=== PATIENT | female | born 1970 | race Caucasian/White ===

== ENCOUNTER → 2019-04-12 09:22 | Outpatient (CLI) | payer OTHER, SELFPAY ==
--- NOTE | ~2019-04-12 | XR_ITS ---
EXAMINATION: XR knee RT 3V DATE: 04/12/2019 09:45 INDICATION: Right knee pain. TECHNIQUE: 3 views of right knee were obtained. COMPARISON: None. FINDINGS: Bone alignment is normal. No fracture. There is mild tricompartment osteoarthritis. There i s a small knee joint effusion. IMPRESSION: 1. Mild right knee osteoarthritis. 2. Small right knee joint effusion. Reviewed, dictated and finalized at location [facility] [employer]
== END ==
PROVIDERS: PCP Internal Medicine; Visit Provider Nurse Practitioner
DX: M25.561 Pain in right knee (principal); M17.11 Unilateral primary osteoarthritis, right knee; M25.461 Effusion, right knee
CPT/HCPCS: 73562

== ENCOUNTER 2019-05-22 14:00 | Outpatient (RCR) | payer OTHER, SELFPAY ==
--- NOTE | 2019-04-17 16:13 | PTOPEVAL ---
PHYSICAL THERAPY EVALUATION AND PLAN OF CARE Thank you for referring this patient to [facility]. Jyoti will be seen in PT 1x/week for 4 weeks. Please review, sign, date and return this plan of care ROMERO. I agree with and certify that the following plan of care is medically necessary. Referring Physician Date Attending Provider: Ally Mg NP Evaluation Diagnosis right knee pain Onset 2months ago Cause insidious Subjective Information Jyoti is here today with c/o Query Text:As Reported By Patient/ right knee pain. Standing, Family walking, and stair climbing increase symptoms; occasional achiness while sitting. Intermittment, but daily and sometimes worse than others. Notes a moment when she was crouching that she noted significant increase in pain in which she had to reposition in order to get back up. Jyoti does walk daily with goal of 10,000steps and will use treadmill if needed; has a weight machine at home for strengthening Self Report Pain Assessment Right Knee(s) Reported Pain Level 3 Pain Frequency Acute,Intermittent Current Pain Intensity 3 Lowest Pain Intensity 0 Greatest Pain Intensity 8 Pain Aggravating Factors Prolonged Position,Stair Climbing,Walking,Weight Bearing/Standing Pain Behaviors None Pain Relief Interventions Used By Medication Patient Interventions Used By Clinicians Exercise Additional Pain Comments osteobiflex Pain Score Pain Score 3: Self Report Hip Strength Right Hip Flexion Strength 4+ Good + Hip Extension Strength 3+ Fair + Hip Abduction Strength 3+ Fair + Knee Strength Right Knee Flexion Strength 5 Normal Knee Extension Strength 4+ Good + Knee Strength Comments single leg sit<>stand: unable at normal chair height on right knee; able to perform with imld difficulty on left Muscle Length Testing Left Hamstring Length -20 Query Text:(90 - 90 Position) Right Hamstring Length -20 Query Text:(90 - 90 Position) Palpation Assessment effusion noted at joint line
--- NOTE | 2019-05-08 07:57 | PCPTNOTE ---
Patient called & cancelled scheduled appointment this date. No reason provided.
--- NOTE | 2019-05-22 14:33 | PTOPEVAL ---
PHYSICAL THERAPY DISCHARGE NOTE Thank you for referring Jyoti Thomas to [facility]. Please review, sign, date and return this plan of care ROMERO. I agree with and certify that the following plan of care is medically necessary. Referring Physician Date Attending Provider: Ally Mg, FRONT ELEVATOR OPERATOR Discharge Diagnosis right knee pain Onset 2months ago Cause insidious Subjective Information Jyoti reports she is walking Query Text:As Reported By Patient/ more as she would normally Family want to. There are occasional days of some discomfort but overall is very manageable and tolerable. Pain Assessment Timing of Pain Assessment Timing of Pain Assessment Assessment Self Report Self Report Pain Level 0 Pain Score Pain Score 0: Self Report Lower Extremity Muscle Strength Testing Hip Strength Right Hip Flexion Strength 5 Normal Hip Extension Strength 4+ Good + Hip Abduction Strength 4+ Good + Knee Strength Right Knee Flexion Strength 5 Normal Knee Extension Strength 5 Normal Knee Strength Comments single leg sit<>stand: mild difficulty to perform, but improved compared to initial visit Palpation no apparent effusion at joint line Gait Pattern No Deviations/Normal Stair Climbing Assessment Stair Climbing Assessment Stair Climbing Assistive Devices None Number of Steps Climbed (Steps) 7 Number of Repetitions (Repetitions) 1 Technique Alternating Steps Stair Climbing Direction Both Up and Down PT Clinical Summary Jyoti demonstrates today that she has met her functional goals at this time. She reports today that subjective symptoms are now manageable. She is comfortable with HEP and purchased therapy resistance bands.
== END 2019-06-20 14:41 | disposition home or self-care (01) ==
LOC: ANHPT 14:00
PROVIDERS: PCP Internal Medicine; Visit Provider Nurse Practitioner
DX: M25.561 Pain in right knee (principal)
CPT/HCPCS: 97110; 97161

== ENCOUNTER → 2020-01-01 09:27 | Outpatient (CLI) | payer OTHER, SELFPAY ==
--- NOTE | ~2020-01-01 | DEXA_ITS ---
Bone Density Report Name: Jyoti Thomas Age: 49 Sex: Female Ethnicity: White Date of : 1970 Indication: postmenopausal; screening for osteoporosis; hysterectomy; Referring Provider: CECE SHABAZZ Study: Bone densitometry was performed. Exam Date: January 01, 2020 Accession number: [id number] Bone Density: Region BMD T-score Z-score Classification AP Spine (L1-L4) 1.033 -0.1 0.6 Normal Femoral Neck (Left) 0.937 0.8 1.6 Normal Total Hip (Left) 1.092 1.2 1.7 Normal Femoral Neck (Right) 0.868 0.2 0.9 Normal Total Hip (Right) 1.021 0.6 1.1 Normal Total Hip Mean 1.057 0.9 1.4 Normal World Health Organization criteria for BMD impression classify patients as: Normal (T-score at or above -1.0), Osteopenia (T-score between -1.0 and -2.5), or Osteoporosis (T-score at or below -2.5). 10-year Fracture Risk: FRAX not reported because: All T-scores for Spine Total, Hip Total, Femoral Neck at or above -1.0 Clinical Information Provided by Patient: Has used the following medications: Vitamin D Has the following medical conditions: Hysterectomy Patient maximum height was 67.5 Menopause Age: 46 Drinks caffeinated beverages Onset of menses at age 11 Number of children 3 Impression: The patient has normal bone mass. Discussion: BONE DENSITY IS ABOVE THE MINIMUM DESIRABLE LEVEL AT ALL SKELETAL SITES TESTED. This patient?s bone mineral density is above the minimum desirable level (T-score -1.0 or better) at all sites measured. The patient should follow a healthful lifestyle (good nutrition with adequate calcium and vitamin D, and appropriate weight-bearing exercise). Follow-Up: Consider repeating this study in 5 years or sooner if there is some new clinical indication. Reported by: [facility] on 01/01/2020 9:49:00 AM. Reviewed, dictated and finalized at location [facility]
== END ==
PROVIDERS: PCP Internal Medicine; Visit Provider Obstetrics & Gynecology Gynecology
DX: Z78.0 Asymptomatic menopausal state (principal)
CPT/HCPCS: 77080

== ENCOUNTER 2020-11-01 02:11 | Day surgery (SDC) | payer OTHER, SELFPAY ==
[2020-10-24 10:38] VITALS: BMI 34.5
[2020-11-01 12:16] VITALS: BP 135/92; PULSE 80; RESP 18; TEMP 36.7; O2SAT 100
--- NOTE | 2020-11-01 12:39 | WPDANESEPPF ---
Anes - Initial Pre Proc Eval Procedure: Operation Date: 11/01/20 13:15 Proposed Procedures p Screening Colonoscopy - Nathan Michael MD Date/Time: 11/01/20 12:39 Surgeon: Nathan Michael MD Pre Op Diagnosis: neoplasm screening Patient Data Age: 50 Gender: F Height: 1.7 m Weight: 97.3 kg Last Vital Signs Temp 98.1 F 11/01/20 12:16 Pulse 80 11/01/20 12:16 Resp 18 11/01/20 12:16 BP 135/92 H 11/01/20 12:16 Pulse Ox 100 11/01/20 12:16 Allergies Allergy/AdvReac Type Severity Reaction Status Date / Time adhesive Allergy Mild RASH Unverified 11/01/20 12:14 Home Medications Medication Instructions Recorded Confirmed Type azelaic acid 15 % topical gel 1 applic TOPICAL DAILY 09/20/20 11/01/20 History doxycycline monohydrate 40 mg 40 mg PO DAILY 09/20/20 11/01/20 History capsule,immediate - delay release ergocalciferol (vitamin D2) 1,000 10 mcg PO DAILY 09/20/20 11/01/20 History unit capsule Patient hx anesthesia problems: none Family hx anesthesia problems: none PMFSH Past Medical History Medical History Chicken pox Vaginal spotting Vaginal tumor Removed 12/03/2014 Surgical History Surgical History (Updated 09/20/20 @ 09:59 by Sari Sheikh CMA) H/O breast biopsy H/O dilation and curettage 01/03/2015 H/O total hysterectomy 02/11/2015 H/O vaginal surgery Vaginal anterior and posterior repair 02/11/2015 Family History Family History Father Malignant neoplasm of prostate Family history of lung cancer Social History Social History Smoking status: Never smoker Alcohol intake: current Drinks per week: 4 Alcohol use details: 3-5 drinks on weekend Substance use: never Substance use type: does not use Living arrangements: with family Spiritual care concerns: No Anes - Eval Final PreProcedure Day of Procedure 11/01/20 12:39 Patient weight: obese Heart: regular rate and rhythm Lungs: clear to auscultation Airway: Mallampati scale Last oral intake: >/= 8 hours ASA classification: II Emergent: no Anesthetic plan: proceed Anesthesia type and monitoring: general GIVS and standard monitoring Informed Consent: The patient's anesthetic plan and its attendant risks and benefits were discussed with the patient/family/POA. Questions were solicited and answers provided to the satisfaction of the patient/family/POA.
[2020-11-01] MEDS: LACTATED RINGERS 1,000 ML 150 ML IV CONT (12:59)
--- NOTE | 2020-11-01 13:55 | PM.HPGS ---
History of Present Illness History of Present Illness Consent: Risks, benefits, and alternatives have been discussed and questions answered. Patient agrees to proceed with procedure. Chief complaint: neoplasm screening Narrative: Jyoti Thomas is a 50 year old female here for first colonoscopy Review of Systems Constitutional: Constitutional: Denies headache(s) and Denies weakness Eyes: Eyes: Denies blurry vision ENT: Reports Normal hearing present, Denies headache(s) and Denies neck pain Cardiovascular: Cardiovascular: Denies chest pain and Denies dyspnea Respiratory: Respiratory: Denies dyspnea Gastrointestinal: Gastrointestinal: Reports no additional gastrointestinal complaints Genitourinary: Genitourinary: Denies dysuria Musculoskeletal: Musculoskeletal: Denies neck pain Integumentary/Breasts: Skin/Breast: Denies dry skin Neurologic: Reports Normal hearing present, Denies headache(s) and Denies weakness Psychiatric: Psychiatric: Denies anxiety Endocrine: Endocrine: Denies change in body appearance Hematologic/Lymphatic: Hematologic/Lymphatic: Denies easy bleeding Allergic/Immunologic: Allergic/Immunologic: Denies urticaria PMF Past Medical History Medical History Chicken pox Vaginal spotting Vaginal tumor Removed 12/03/2014 Surgical History Surgical History (Updated 09/20/20 @ 09:59 by Sari Sheikh CMA) H/O breast biopsy H/O dilation and curettage 01/03/2015 H/O total hysterectomy 02/11/2015 H/O vaginal surgery Vaginal anterior and posterior repair 02/11/2015 Family History Family History Father Malignant neoplasm of prostate Family history of lung cancer Social History Social History Smoking status: Never smoker Alcohol intake: current Drinks per week: 4 Alcohol use details: 3-5 drinks on weekend Substance use: never Substance use type: does not use Living arrangements: with family Spiritual care concerns: No Meds Home Medications and Allergies Home Medications Medication Instructions Recorded Confirmed Type azelaic acid 15 % topical gel 1 applic TOPICAL DAILY 09/20/20 11/01/20 History doxycycline monohydrate 40 mg 40 mg PO DAILY 09/20/20 11/01/20 History capsule,immediate - delay release ergocalciferol (vitamin D2) 1,000 10 mcg PO DAILY 09/20/20 11/01/20 History unit capsule Allergies Allergy/AdvReac Type Severity Reaction Status Date / Time adhesive Allergy Mild RASH Unverified 11/01/20 12:14 Vital Signs Vital Signs - 24 hr 11/01/20 12:16 Temperature 98.1 F Pulse Rate 80 Respiratory Rate 18 Blood Pressure 135/92 H Pulse Oximetry 100 Exam Const: General: comfortable and no acute distress HENMT: General nose exam: Normal nares present Eyes: General: appearance normal, both eyes and all related structures Neck: Neck: no JVD Resp: Auscultation: clear to auscultation bilaterally Cardio: Rate: regular rate Rhythm: regular rhythm GI: Inspection: non-distended GI Palp: Yes Soft to palpation Skin: General skin exam: normal color Neuro: General: gait normal Speech: normal speech Extrem: General: normal to inspection Psych: Mental Status: mental status grossly normal Assessment and Plan Assessment and plan (1) Screening for colon cancer: Code(s): Z12.11 - Encounter for screening for malignant neoplasm of colon Status: Acute Assessment and Plan: colonoscopy
[2020-11-01 14:23] VITALS: BP 107/70; PULSE 84; RESP 20; O2SAT 100
[2020-11-01 14:33] VITALS: BP 109/73; PULSE 81; RESP 19; O2SAT 100
[2020-11-01 14:37] VITALS: BP 123/90; PULSE 83; RESP 22; O2SAT 100
== END 2020-11-01 14:44 | disposition home or self-care (01) ==
PROVIDERS: PCP Internal Medicine; Visit Provider Internal Medicine Gastroenterology
PROC: 0DJD8ZZ Inspection of Lower Intestinal Tract, Via Natural or Artificial Opening Endoscopic (ICD-10-PCS; CPT 45378; principal; 2020-11-01 13:15)
DX: Z12.11 Encounter for screening for malignant neoplasm of colon (principal); K63.5 Polyp of colon; K57.30 Diverticulosis of large intestine without perforation or abscess without bleeding; K64.8 Other hemorrhoids; E66.9 Obesity, unspecified; Z68.33 Body mass index [BMI] 33.0-33.9, adult
CPT/HCPCS: 45385; 88305; J2704; J7120

== ENCOUNTER 2023-07-26 10:11 | Outpatient (CLI) | payer OTHER, SELFPAY ==
--- NOTE | ~2023-07-26 | DEXA_ITS ---
Bone Density Report Name: TRINA KARIMI Age: 53 Sex: Female Ethnicity: White Date of : 1970 Indication: postmenopausal; screening for osteoporosis; hysterectomy; Referring Provider: CECE SHABAZZ Study: Bone densitometry was performed. Exam Date: July 26, 2023 Accession number: [id number] Bone Density: Region BMD T-score Z-score Classification AP Spine (L1-L4) 1.061 0.1 1.1 Normal Femoral Neck (Left) 0.945 0.9 1.9 Normal Total Hip (Left) 1.103 1.3 2.0 Normal Femoral Neck (Right) 0.898 0.4 1.4 Normal Total Hip (Right) 1.022 0.7 1.3 Normal Total Hip Mean 1.063 1.0 1.7 Normal World Health Organization criteria for BMD impression classify patients as: Normal (T-score at or above -1.0), Osteopenia (T-score between -1.0 and -2.5), or Osteoporosis (T-score at or below -2.5). 10-year Fracture Risk: FRAX not reported because: All T-scores for Spine Total, Hip Total, Femoral Neck at or above -1.0 Previous Exams: Region Exam Age BMD T-score BMD Change BMD Change Date g/cm2 vs Baseline vs Previous AP Spine(L1-L4) 07/26/2023 53 1.061 0.1 0.028 0.028 01/01/2020 49 1.033 -0.1 Total Hip(Left) 07/26/2023 53 1.103 1.3 0.010 0.010 01/01/2020 49 1.092 1.2 Total Hip(Right) 07/26/2023 53 1.022 0.7 0.001 0.001 01/01/2020 49 1.021 0.6 *Denotes significance at 95% confidence level, LSC for AP Spine = 0.022 g/cm2, LSC for Total Hip = 0.027 g/cm2 Clinical Information Provided by Patient: Has used the following medications: Vitamin D Has the following medical conditions: Hysterectomy Patient maximum height was 67.5 Menopause Age: 46 Drinks caffeinated beverages Onset of menses at age 11 Number of children 3 Impression: The patient has normal bone mass. No significant bone loss was observed. Discussion: BONE DENSITY IS ABOVE THE MINIMUM DESIRABLE LEVEL AT ALL SKELETAL SITES TESTED. This patient?s bone mineral density is above the minimum desirable level (T-score -1.0 or better) at all sites measured. The patient should follow a healthful lifestyle (good nutrition with adequate calcium and vitamin D, and appropriate weight-bearing exercise). Follow-Up: Consider repeating this study in 5 years or sooner if there is some new clinical indication. Reported by: CICI on 07/26/2023 10:19:00 AM. Reviewed, dictated an
== END 2023-07-26 10:12 ==
LOC: MICIMG 10:12
PROVIDERS: PCP Internal Medicine; Visit Provider Obstetrics & Gynecology Gynecology
DX: Z78.0 Asymptomatic menopausal state (principal)
CPT/HCPCS: 77080